=== PATIENT | female | born 1975 | race Two or more races ===

== ENCOUNTER 2020-11-25 15:01 | Outpatient (REF) | payer OTHER, SELFPAY ==
[2020-11-26 04:47] LABS: ~Hepatitis B Surface Antibody REACTIVE (Nonreactive)
[2020-11-26 07:27] LABS: Mumps Virus IgG Antibody >300.00 AU/mL; Rubella IgG Antibody 9.85 Index; Rubeola IgG (Measles) >300.00 AU/mL
[2020-11-26 07:51] LABS: Varicella IgG Antibody >4000.00 index
[2020-11-27 21:58] LABS: TS Negative Control Passed; TS Panel A 0; TS Panel B 0; TS Positive Control Passed; TSpotTB Negative (SeeBelow)
== END 2020-11-25 15:02 | disposition home or self-care (01) ==
LOC: HO.LNP 15:01
PROVIDERS: Visit Provider Internal Medicine
DX: Z02.1 Encounter for pre-employment examination (principal)
CPT/HCPCS: 86481; 86706; 86735; 86762; 86765; 86787

== ENCOUNTER 2024-01-10 10:22 | Outpatient (AMB) | payer OTHER, SELFPAY ==
--- NOTE | 2024-01-10 10:41 | MHC.OFFVIS ---
Intake Vital Signs 01/10/24 10:42 Height 5 ft 4 in Weight 196 lb BMI 33.6 BP 128/70 Blood Pressure Location Lt brachial Position Sitting Pulse 87 Pulse Source Pulse Oximeter Pulse Oximetry (%) 98 Oxygen Delivery Method Room Air Intake Visit Reasons: asthma Parking Analyst Required: No Allergies nitrofurantoin Adverse Reaction (Severe, Verified 01/10/24 10:44) Unconscious Penicillins Adverse Reaction (Severe, Verified 01/10/24 10:44) Rash Sulfa Drugs Adverse Reaction (Severe, Uncoded 01/10/24 10:44) Rash HPI HPI Comments History of Present Illness Details The patient is here for evaluation. Patient is a 48 year a known history of asthma presenting with symptoms. The patient states that she was stable Flovent HFA she will take the as prescribed. She did have a rescue inhaler that she did not require often. However once the Flovent was discontinued she was placed on Pulmicort. She does not feel it is working for her. Also is causing irritation in her throat and she does not tolerate the powder. She complains of episodic shortness of breath chest tightness and wheezing. Severity. She is using inhaler more 2 times a week. The patient does have underlying allergies. She has also had evidence of eosinophilia in past was mention that she be a candidate for biologics. She has been taking Singulair for asthma good response. Denies any recent PFTs or imaging studies. No significant eczema. She does chronic rhinitis. This point I believe she would be a good candidate for Symbicort. Switching over to combination inhaler will be the best effort. The patient does not tolerate powdered inhalers because they cause throat irritation. The patient should also undergo pulmonary function studies and blood work. Will follow-up in 3-4 months Or sooner if she is developing worsening symptoms. [facility] Medical History (Updated 01/10/24 @ 18:55 by Lucho Back MD) Allergies Chronic allergic rhinitis Asthma Social History (Updated 01/10/24 @ 10:47 by NATHALIE Rosen) Patient Tobacco Use Status: Never used Tobacco Review of Systems Const Denies fever(s) Eyes Reports no additional complaints ENT Reports nasal congestion Card Denies chest pain Resp Reports cough and Reports wheezing GI Reports no additional complaints Musc Reports no additional complaints Skin/Breast Denies rash Neuro Reports no additional complaints Timi/Lymph Denies lymphadenopathy Aller/Immun Reports wheezing Physical Exam Vital Signs: Last Vital Signs Pulse 87 01/10/24 10:42 BP 128/70 01/10/24 10:42 Pulse Ox 98 01/10/24 10:42 Oxygen Delivery Method Room Air 01/10/24 10:42 BMI result Body Mass Index 33.6 Const General: comfortable HEENT Head: Yes normocephalic Neck Neck: Yes supple Chest Chest palpation & inspection: normal inspection of the chest Resp Effort & Inspection: normal respiratory effort Auscultation: clear to auscultation bilaterally Cardio Heart sounds: S1 normal heart sound present and S2 normal heart sound present GI Palpation (GI): Soft to palpation Skin General skin exam: no rashes or lesions noted Extrem General: No clubbing, No cyanosis and Yes edema Assessment & Plan Assessment & Plan (1) Asthma: Code(s): J45.909 - Unspecified asthma, uncomplicated Qualifiers: Asthma severity: moderate Asthma persistence: persistent Asthma complication type: uncomplicated Qualified Code(s): J45.40 - Moderate persistent asthma, uncomplicated (2) Chronic allergic rhinitis: Code(s): J30.9 - Allergic rhinitis, unspecified (3) Allergies: Code(s): T78.40XA - Allergy, unspecified, initial encounter Qualifiers: Encounter type: initial encounter Qualified Code(s): T78.40XA - Allergy, unspecified, initial encounter Plan Stop Pulmicort Start Symbicort, The patient did not tolerate the powdered inhalers due to throat irritation. STEFANIE as needed Bloodwork, ?[place] [facility] [place] Orders: Orders Immunoglobulin E Today J45.909 - Unspecified asthma, uncomplicated Complete Blood Count Auto Diff Today J45.909 - Unspecified asthma, uncomplicated Erythrocyte Sedimentation Rate Today J45.909 - Unspecified asthma, uncomplicated PFT pulmonary function test Today J45.40 - Moderate persistent asthma, uncomplicated Medications: New budesonide-formoterol 160-4.5 mcg/actuation (Symbicort) 2 puffs inhalation BID 10.2 grams 11RF 30 days J44.89 - Other specified chronic obstructive pulmonary disease Coding Level of Care Code New Pt Level 4 (62164) Diagnoses Moderate persistent asthma without complication J45.40 Asthma severity: moderate Asthma persistence: persistent Asthma complication type: uncomplicated Chronic allergic rhinitis J30.9 Allergy, initial encounter T78.40XA Encounter type: initial encounter Time Spent (min) 35
[2024-01-10 10:42] VITALS: BP 128/70; PULSE 87; O2SAT 98; BMI 33.6
== END 2024-01-10 11:11 | disposition home or self-care (01) ==
PROVIDERS: PCP Internal Medicine; Referring Provider Internal Medicine; Visit Provider Hospitalist
DX: J45.40 Moderate persistent asthma, uncomplicated (principal); J30.9 Allergic rhinitis, unspecified; T78.40XA Allergy, unspecified, initial encounter
CPT/HCPCS: 99204

== ENCOUNTER → 2024-01-10 10:22 | Outpatient (BNVA) | payer OTHER, SELFPAY | PROVIDERS: PCP Internal Medicine; Referring Provider Internal Medicine; Visit Provider Hospitalist ==